=== PATIENT | female | born 1970 | race Caucasian/White ===

== ENCOUNTER → 2017-11-17 | Outpatient (CLI) | payer BC ==
[~2017-11-17] MED LIST: CARI350T28 PO; LEVO1IUD2; LORA-741 PO; PRLSR20 PO; ZOLP10TA6 PO
--- NOTE | 2017-11-17 10:53 | DIAGNOSTIC IMAGING REPORT ---
ULTRASOUND OF THE PELVIS CLINICAL HISTORY: Intrauterine device check. COMPARISON STUDY: No priors. TECHNIQUE: Real-time, grayscale, and color flow sonography of the pelvis is performed both transabdominally and endovaginally. Images are reviewed in the transverse and longitudinal planes. FINDINGS: Uterus: The uterus is normal in size and echotexture, measuring 7.2 x 3.6 x 5.4 cm. Tiny nabothian cysts are noted in the cervix. Endometrium: An intrauterine device is in place. The endometrium is normal in appearance, and the endometrial stripe is normal in thickness measuring up to 0.6 cm. Ovaries: The ovaries are normal in size and morphology. The right ovary measures 2.3 x 1.1 x 2.0 cm and the left ovary measures 2.4 x 1.4 x 1.2 cm. Normal Doppler waveforms are shown within both ovaries. Pelvis: There is no free fluid in the cul-de-sac. No concerning adnexal lesion is seen. IMPRESSION: Unremarkable sonographic assessment of the pelvis noting an intrauterine device in place. Electronically signed by: Braulio Fabian M.D. 11/17/2017 10:52 AM Dictated Date/Time: 11/17/2017 10:43 AM
== END | disposition home or self-care (01) ==
LOC: C.ULTRBC 09:55
PROVIDERS: ATTEND Family Medicine
DX: R10.2 Pelvic and perineal pain (principal)